=== PATIENT | female | born 1995 | race Caucasian/White ===

== ENCOUNTER 2017-07-17 10:02 | Emergency (ER) | payer SELFPAY ==
[~2017-07-17] VITALS: Ht 157.5 cm; Wt 49.9 kg
[2017-07-17 10:02] VITALS: BP 110/72
[2017-07-17] MEDS ORDERED: IV NS 0.9% 1,000 ML BAG IV ONE (10:30)
[2017-07-17 10:52] LABS: CALCIUM, SERUM 8.3 mg/dL (8.5-10.1); CREATININE 0.7 mg/dL (0.6-1.3); POTASSIUM 3.7 mmol/L (3.5-5.1)
--- NOTE | 2017-07-17 12:16 | NUR ---
Patient discharged to home in stable condition. Written and verbal after care instructions given. Patient verbalizes understanding of instruction. IV removed. Catheter intact and site benign. Pressure and 4x4 applied to site. No bleeding noted. Prescription given.
== END 2017-07-17 12:15 | disposition home or self-care (01) ==
LOC: EDSEX 10:04 → ER 10:04
DX: L03.114 Cellulitis of left upper limb (principal); L03.011 Cellulitis of right finger; F17.200 Nicotine dependence, unspecified, uncomplicated; Z60.2 Problems related to living alone
CPT/HCPCS: 36415; 80048; 96360; 99284; A4606; J7030; Z7610